=== PATIENT | female | born 1935 | race Caucasian/White ===

== ENCOUNTER 2018-06-21 10:28 | Observation (INO) ==
[2018-06-21] MEDS ORDERED: hydrALAZINE HCl Inj 20 MG/ML Vial IV.PUSH ONE ×2 (11:10→11:12)
--- NOTE | 2018-06-21 11:21 | ED ---
HPI General Chief Complaint: Anxiety Stated Complaint: b/p complaint Time Seen by Provider: 06/21/18 11:00 History of Present Illness HPI narrative: Patient is 82 years old female with history of high blood pressure, presented today with elevated blood pressure, systolic blood pressures up to 230. As per patient she measured her blood pressure yesterday in the evening and it was 130 systolic, she just decided not to take any blood pressure medications. Today in the morning when she woke up she measured her blood pressure is at 140 systolic and she again did not take her blood pressure medications. In the emergency room patient has high blood pressure and chest discomfort. Never had any cardiac issues in the past. Aspirin and nitroglycerin given. Patient look looks anxious in the emergency room. Related Data Home Medications Medication Instructions Recorded Confirmed hydrochlorothiazide 25 mg PO QAM 06/21/18 06/21/18 lisinopril 20 mg PO DAILY 06/21/18 06/21/18 lovastatin 20 mg PO QPM 06/21/18 06/21/18 verapamil 06/21/18 06/21/18 Allergies Allergy/AdvReac Type Severity Reaction Status Date / Time No Known Allergies Allergy Unknown Abdominal Uncoded 06/21/18 10:36 Pain Review of Systems ROS: all other systems reviewed are negative Cardiovascular Reports chest pain PMFSH Medical History Medical History HTN (hypertension) (Acute) Hyperlipemia (Acute) Social History Social History Substance History: No History of Abuse Second Hand Smoke Exposure: No Smoking Status: Never smoker Tobacco Type: Cigarettes How Often Do You Have a Drink Containing Alcohol: Never Recent Travel in [facility] within the Last 8 Weeks: No Recent Out of Country Travel within the Last 8 Weeks: No Immunization History Tetanus Immunization: Unsure Hx Influenza Vaccine This Season: No Exam Narrative Exam Narrative: GENERAL: [52-year-old female in no apparent distress-] SKIN: Focused skin assessment warm/dry. HEAD: Atraumatic. Normocephalic. EYES: Pupils equal and round. No scleral icterus. No injection or drainage. ENT: No nasal bleeding or discharge. Mucous membranes pink and moist. NECK: Trachea midline. No JVD. CARDIOVASCULAR: Regular rate and rhythm. No murmur appreciated. RESPIRATORY: No accessory muscle use. Clear to auscultation. Breath sounds equal bilaterally. GASTROINTESTINAL: Abdomen soft, non-tender, nondistended. Hepatic and splenic margins not palpable. MUSCULOSKELETAL: No obvious deformities. No clubbing. No cyanosis. No edema. NEUROLOGICAL: Awake and alert. No obvious cranial nerve deficits. Motor grossly within normal limits. Normal speech. PSYCHIATRIC: Appropriate mood and affect; insight and judgment normal. Course Initial Documented Vital Signs Temperature 98.0 F 06/21/18 10:36 Pulse Rate 60 06/21/18 10:36 Respiratory Rate 16 06/21/18 10:36 Blood Pressure 231/100 H 06/21/18 10:36 Pulse Oximetry 97 06/21/18 10:36 Last Documented Vital Signs Temperature 98.8 F 06/21/18 10:42 Pulse Rate 75 06/21/18 11:36 Respiratory Rate 16 06/21/18 11:36 Blood Pressure 177/84 H 06/21/18 11:36 Pulse Oximetry 97 06/21/18 11:36 Medical Decision Making MDM Narrative Medical decision making narrative: Labs ordered Blood pressure management Chest pain evaluation Reevaluation Admission to observation Labs noted, first set of troponin is negative, no chest pain Patient has mild UTI treated with Cipro. Hospitalist called for admission. Medical Screen Exam Complete: Yes Emergency Medical Condition: Yes Differential Diagnosis Differential Diagnosis: Hypertension Rule out hypertension emergency Chest pain rule out ACS Renal insufficiency Lab Data Result diagrams: 06/21/18 11:24 06/21/18 11:24 Lab Results 06/21/18 06/21/18 06/21/18 Range/Units 11:24 11:24 11:24 WBC 9.3 (4.0-11.0) th/mm3 RBC 4.62 (4.00-5.30) mil/mm3 Hgb 13.6 (11.6-15.3) gm/dL Hct 41.7 (35.0-46.0) % MCV 90.4 (80.0-100.0) fL MCH 29.5 (27.0-34.0) pg MCHC 32.7 (32.0-36.0) % RDW 13.7 (11.6-17.2) % Plt Count 252 (150-450) th/mm3 MPV 8.1 (7.0-11.0) fL Neut % (Auto) 78.3 H (16.0-70.0) % Lymph % (Auto) 13.3 (9.0-44.0) % [place] % (Auto) 6.9 (0.0-8.0) % Eos % (Auto) 0.8 (0.0-4.0) % Baso % (Auto) 0.7 (0.0-2.0) % Neut # (Auto) 7.2 (1.8-7.7) th/mm3 Lymph # (Auto) 1.2 (1.0-4.8) th/mm3 [place] # (Auto) 0.6 (0.0-0.9) th/mm3 Eos # (Auto) 0.1 (0.0-0.4) th/mm3 Baso # (Auto) 0.1 (0.0-0.2) th/mm3 WBC Differential . Differential Comment Auto diff final Sodium 142 (136-145) meq/L Potassium 3.9 (3.5-5.1) meq/L Chloride 107 (98-107) meq/L Carbon Dioxide 23.9 (21.0-32.0) meq/L Anion Gap 11 (5-15) meq/L BUN 15 (7-18) mg/dL Creatinine 0.79 (0.50-1.00) mg/dL Estimated GFR 70 L (>89) mL/min Random Glucose 121 H (74-106) mg/dL Calcium 8.8 (8.5-10.1) mg/dL Total Bilirubin 0.5 (0.2-1.0) mg/dL AST 46 H (15-37) U/L ALT 40 (10-53) U/L Alkaline Phosphatase 66 (45-117) U/L Troponin I Less than 0.02 L (0.02-0.05) ng/mL B-Natriuretic Peptide 70 (0-100) pg/mL Total Protein 7.4 (6.4-8.2) g/dL Albumin 3.3 L (3.4-5.0) g/dL Lipase 81 (73-393) U/L Urine Color (Yellw/Straw) Urine Clarity (Clear) Urine pH (5.0-8.5) Ur Specific Severance (1.002-1.035) Urine Protein (Neg-Trace) mg/dL Urine Glucose (UA) (Negative) mg/dL Urine Ketones (Negative) mg/dL Urine Occult Blood (Negative) Urine Nitrate (Negative) Urine Bilirubin (Negative) Urine Urobilinogen (Less than 2) mg/dL Ur Leukocyte Esterase (Negative) Urine RBC (0-3) /hpf Urine WBC (0-5) /hpf Ur Squamous Epith Cells (0-5) /hpf Urine Bacteria (None) /hpf Urine Mucus (Occasional) /lpf Ur Microscopic Review 06/21/18 Range/Units 15:45 WBC (4.0-11.0) th/mm3 RBC (4.00-5.30) mil/mm3 Hgb (11.6-15.3) gm/dL Hct (35.0-46.0) % MCV (80.0-100.0) fL MCH (27.0-34.0) pg MCHC (32.0-36.0) % RDW (11.6-17.2) % Plt Count (150-450) th/mm3 MPV (7.0-11.0) fL Neut % (Auto) (16.0-70.0) % Lymph % (Auto) (9.0-44.0) % [place] % (Auto) (0.0-8.0) % Eos % (Auto) (0.0-4.0) % Baso % (Auto) (0.0-2.0) % Neut # (Auto) (1.8-7.7) th/mm3 Lymph # (Auto) (1.0-4.8) th/mm3 [place] # (Auto) (0.0-0.9) th/mm3 Eos # (Auto) (0.0-0.4) th/mm3 Baso # (Auto) (0.0-0.2) th/mm3 WBC Differential Differential Comment Sodium (136-145) meq/L Potassium (3.5-5.1) meq/L Chloride (98-107) meq/L Carbon Dioxide (21.0-32.0) meq/L Anion Gap (5-15) meq/L BUN (7-18) mg/dL Creatinine (0.50-1.00) mg/dL Estimated GFR (>89) mL/min Random Glucose (74-106) mg/dL Calcium (8.5-10.1) mg/dL Total Bilirubin (0.2-1.0) mg/dL AST (15-37) U/L ALT (10-53) U/L Alkaline Phosphatase (45-117) U/L Troponin I (0.02-0.05) ng/mL B-Natriuretic Peptide (0-100) pg/mL Total Protein (6.4-8.2) g/dL Albumin (3.4-5.0) g/dL Lipase (73-393) U/L Urine Color Yellow (Yellw/Straw) Urine Clarity Cloudy H (Clear) Urine pH 7.0 (5.0-8.5) Ur Specific Severance 1.015 (1.002-1.035) Urine Protein Negative (Neg-Trace) mg/dL Urine Glucose (UA) Negative (Negative) mg/dL Urine Ketones Negative (Negative) mg/dL Urine Occult Blood Negative (Negative) Urine Nitrate Negative (Negative) Urine Bilirubin Negative (Negative) Urine Urobilinogen Less than 2 (Less than 2) mg/dL Ur Leukocyte Esterase Small H (Negative) Urine RBC 1 (0-3) /hpf Urine WBC 25 H (0-5) /hpf Ur Squamous Epith Cells <1 (0-5) /hpf Urine Bacteria Occasional H (None) /hpf Urine Mucus Few H (Occasional) /lpf Ur Microscopic Review Not Reportable Imaging Data Radiologist's impression: Chest X-Ray 06/21/18 11:08 CONCLUSION: Elevation right hemidiaphragm with minimal parenchymal changes right base that could be an inflammatory process. Discharge Plan Discharge Disposition Patient Disposition: 30 Still Patient Discharge Condition Condition: Fair Discharge Details Discharge Comment: Patient had chest pain, resolved in the emergency room. She will be placed on [facility] under Dr. Davis service Diagnosis: Chest pain of unknown etiology, Acute anxiety, Hypertension, Acute UTI Physicians Team ED Provider: Kostas Reeder Primary Care Provider: Nuvia Ricketts Rxs /Orders / Referrals /Forms Prescriptions: No Action verapamil 200 mg Capsule, [address] RF: 0 lisinopril 20 mg Tablet 20 mg PO DAILY RF: 0 hydrochlorothiazide 25 mg Tablet 25 mg PO QAM RF: 0 lovastatin 20 mg Tablet 20 mg PO QPM RF: 0 Discharge Interventions Interventions: Vital Signs Last Done: 06/21/18 10:42 Status ED Status: With Doctor
--- NOTE | 2018-06-21 11:37 | XR ---
EXAM DATE: 06/21/2018 11:31 AM EDT AGE/SEX: 82 years / Female INDICATIONS: Chest pain. CLINICAL DATA: This is the patient's initial encounter. Patient reports that signs and symptoms have been present for 1 day and indicates a pain score of 0/10. MEDICAL/SURGICAL HISTORY: None. None. COMPARISON: [facility], CHEST PA & LAT, 12/31/2014. . FINDINGS: Heart is minimally enlarged. There is no dilation of the right hemidiaphragm with minimal peribronchi al thickening and parenchymal changes right base. Left lung is reasonably clear. There is no pneumothorax The portion of the bony skeleton visualized is unremarkable. CONCLUSION: Elevation right hemidiaphragm with minimal parenchymal changes right base that could be an inflammato ry process. Electronically signed by: Elton Acosta MD 06/21/2018 11:35 AM EDT
[2018-06-21 11:49] LABS: Baso # (Auto) 0.1 th/mm3 (0.0-0.2); Baso % (Auto) 0.7 % (0.0-2.0); Eos # (Auto) 0.1 th/mm3 (0.0-0.4); Eos % (Auto) 0.8 % (0.0-4.0); Hematocrit 41.7 % (35.0-46.0); Hemoglobin 13.6 gm/dL (11.6-15.3); Lymph # (Auto) 1.2 th/mm3 (1.0-4.8); Lymph % (Auto) 13.3 % (9.0-44.0); Mean Corpuscular HGB Conc 32.7 % (32.0-36.0); Mean Corpuscular Hemoglobin 29.5 pg (27.0-34.0); Mean Corpuscular Volume 90.4 fL (80.0-100.0); Mean Platelet Volume 8.1 fL (7.0-11.0); Mono # (Auto) 0.6 th/mm3 (0.0-0.9); Mono % (Auto) 6.9 % (0.0-8.0); Neut # (Auto) 7.2 th/mm3 (1.8-7.7); Neut % (Auto) 78.3 % (16.0-70.0); Platelet Count 252 th/mm3 (150-450); Red Blood Count 4.62 mil/mm3 (4.00-5.30); Red Cell Distribution Width 13.7 % (11.6-17.2); White Blood Count 9.3 th/mm3 (4.0-11.0)
[2018-06-21 12:07] LABS: Alanine Aminotransferase 40 U/L (10-53); Albumin 3.3 g/dL (3.4-5.0); Anion Gap 11 meq/L (5-15); Aspartate Aminotransferase 46 U/L (15-37); Blood Urea Nitrogen 15 mg/dL (7-18); Calcium 8.8 mg/dL (8.5-10.1); Carbon Dioxide 23.9 meq/L (21.0-32.0); Chloride 107 meq/L (98-107); Glomerular Filtration Rate 70 mL/min (>89); Glucose,Random 121 mg/dL (74-106); Lipase 81 U/L (73-393); Potassium 3.9 meq/L (3.5-5.1); Sodium 142 meq/L (136-145)
[2018-06-21 12:11] LABS: Alkaline Phosphatase 66 U/L (45-117); Total Protein 7.4 g/dL (6.4-8.2)
[2018-06-21 16:17] LABS: Bacteria,Urine Occasional /hpf; Bilirubin,Urine Negative (Negative); Clarity,Urine Cloudy (Clear); Color,Urine Yellow (Yellw/Straw); Glucose,Urine (UA) Negative (Negative); Leukocyte Esterase,Urine Small (Negative); Mucus,Urine Few /lpf (Occasional); Nitrite,Urine Negative (Negative); Specific Gravity,Urine 1.015 (1.002-1.035); Squamous Epithelial Cell,Urine <1 /hpf (0-5)
[2018-06-21 17:29] LABS: Creatine Kinase 65 U/L (26-192)
[2018-06-21] MEDS ORDERED: Acetaminophen 500 MG Tablet PO PRN (18:14)
[2018-06-21] MEDS ORDERED: ALPRAZolam 0.25 MG Tablet PO PRN (18:16)
--- NOTE | 2018-06-21 19:05 | P.HPCA ---
History of Present Illness Primary Care Physician: Nuvia Ricketts Chief Complaint: dizziness, elevated blood pressure History of Present Illness: 82-year-old female with history of hypertension and hyperlipidemia presents emergency room for further evaluation of dizziness, elevated blood pressure, and chest pressure. Onset this morning. [place] dizzy, diaphoretic, with intermittent substernal chest pressure. No radiation. No other associated symptoms. Took blood pressure noted blood pressure to be 230/100. Called daughter to bring her to the emergency room. Total duration approximately 45 minutes. No recent change in blood pressure medication. Notes that she has fluctuations in her blood pressure and her primary care provider told her if her blood pressure is less than 140 she can hold her a.m. BP medication dose. In regards to her chest pressure endorses chest pressure occurring at least one month. Always occurring in morning hours. Substernal. Characterizes pressure. Duration generally last until mid afternoon. No associated symptoms. Endorses current situational stress and questions if discomfort may be related to this. No known coronary artery disease or diabetes. Lifelong non -smoker. No recent illness, fever, chills, or injury. States she was told by ER she has a kidney infection. The last few weeks experiencing urinary leakage, requiring use of poise pads for protection. Past cardiac testing Remote exercise testing. Never required cardiac catheterization. Social history Known hypertension and hyperlipidemia. No known coronary artery disease or diabetes. Lives alone. x5 years. Venessa is a fairly sedentary lifestyle. Lifelong non-smoker. Denies any alcohol or recreational drug use. - Diagnosis (1) Hypertension (2) Atypical chest pain (3) History of hyperlipidemia Review of Systems All other systems reviewed negative except as stated in HPI PMFSH - History History Provided By: Patient - Medical History Medical History: Medical History (Last Updated 06/21/18 @ 10:40 by Korutney Loco) HTN (hypertension) Hyperlipemia - Surgical History Surgical History: Surgical History (Last Updated 06/21/18 @ 19:00 by ILDEFONSO Liu) History of right hip replacement Status post bilateral knee replacements - Social History I have reviewed the patient's Social History: Yes - Tobacco History Second Hand Smoke Exposure: No Tobacco Use In Past 30 Days: No Smoking Status: Never smoker - Alcohol History How Often Do You Have a Drink Containing Alcohol: Never - Substance Use History Substance History: No History of Abuse - Travel History Recent Travel in the [place] Within the Last 8 Weeks: No Recent Travel Out of the Country Within the Last 8 Weeks: No - Immunization History Tetanus Immunization: Unsure Hx Influenza Vaccine This Season: No Medications and Allergies Active Medications: Active Medications Acetaminophen (Tylenol) 500 mg PO Q4H PRN PRN Reason: HEADACHE Alprazolam (Xanax) 0.125 mg PO Q6H PRN PRN Reason: ANXIETY Aspirin (Aspirin) 325 mg PO DAILY MICHAEL Clonidine HCl (Catapres) 0.1 mg PO Q6H PRN PRN Reason: SYS BP GREATER THAN 180 MMHG Nitroglycerin (Nitrostat Sl) 0.4 mg SL Q5M PRN PRN Reason: CHEST PAIN Ondansetron HCl (Zofran Inj) 4 mg IV.PUSH Q6H PRN PRN Reason: NAUSEA Sodium Chloride (Ns Flush) 2 ml IV.FLUSH UNSCH PRN PRN Reason: FLUSH AFTER USING IV ACCESS Sodium Chloride (Ns Flush) 2 ml IV.FLUSH BID MICHAEL Allergies Allergy/AdvReac Type Severity Reaction Status Date / Time No Known Allergies Allergy Unknown Abdominal Uncoded 06/21/18 10:36 Pain Home Medications Medication Instructions Recorded Confirmed Type hydrochlorothiazide 25 mg PO QAM 06/21/18 06/21/18 History lisinopril 20 mg PO DAILY 06/21/18 06/21/18 History lovastatin 20 mg PO QPM 06/21/18 06/21/18 History verapamil 06/21/18 06/21/18 History Exam Vital signs: Vital Signs 06/21/18 10:36 06/21/18 10:42 06/21/18 11:08 Temperature 98.0 F 98.8 F Pulse Rate 60 60 Respiratory Rate 16 18 Blood Pressure 231/100 H Pulse Oximetry 97 98 95 06/21/18 11:36 06/21/18 14:30 06/21/18 17:00 Temperature Pulse Rate 75 58 L 54 L Respiratory Rate 16 18 20 Blood Pressure 177/84 H 154/72 H 168/74 H Pulse Oximetry 97 06/21/18 18:00 Temperature Pulse Rate 56 L Respiratory Rate 18 Blood Pressure 170/71 H Pulse Oximetry Intake & Output 06/20/18 06/21/18 06/21/18 18:59 06:59 18:59 Weight 87.09 kg Narrative: GENERAL: Alert WN, WD, NAD, pleasant, obese elderly female HEAD: NC, AT EYES: Sclera clear, conjunctiva without injection, pupils equal and round ENT: Mucous membranes pink and moist NECK: Supple, no masses, trachea midline CV: RRR, without murmur, rub, gallop, no JVD, S1-S2. No carotid bruits. Chest wall nontender to palpation RESP: Clear lungs throughout bilateral, no crackles, wheeze, rhonchi, symmetrical chest rise, nonlabored, able to speak in full sentences ABD: Soft, NT, ND, no masses, positive bowel tones EXT: Pulses +2x4, no dependent edema MS: Normal tone x4 extremities, nontender, no obvious deformities, full range of motion NEURO: CN II through CN XII grossly intact, motor strength 5/5 PSYCH: A+O x3, pleasant affect, appropriate speech, slightly anxious mood, appropriate insight and judgment SKIN: Normal turgor, normal texture, no lesions, no rashes, brisk cap refill, even hair distribution, bilateral knee surgical scars Results 06/21/18 11:24 06/21/18 11:24 Cardiac Enzymes 06/21/18 06/21/18 06/21/18 Range/Units 11:24 11:24 15:45 AST 46 H (15-37) U/L Troponin I Less than 0.02 L Less than 0.02 L (0.02-0.05) ng/mL B-Natriuretic Peptide 70 (0-100) pg/mL Coagulation 06/21/18 Range/Units 11:24 B-Natriuretic Peptide 70 (0-100) pg/mL CBC 06/21/18 Range/Units 11:24 WBC 9.3 (4.0-11.0) th/mm3 RBC 4.62 (4.00-5.30) mil/mm3 Hgb 13.6 (11.6-15.3) gm/dL Hct 41.7 (35.0-46.0) % Plt Count 252 (150-450) th/mm3 Neut # (Auto) 7.2 (1.8-7.7) th/mm3 Lymph # (Auto) 1.2 (1.0-4.8) th/mm3 [place] # (Auto) 0.6 (0.0-0.9) th/mm3 Eos # (Auto) 0.1 (0.0-0.4) th/mm3 Baso # (Auto) 0.1 (0.0-0.2) th/mm3 Comprehensive Metabolic Panel 06/21/18 Range/Units 11:24 Sodium 142 (136-145) meq/L Potassium 3.9 (3.5-5.1) meq/L Chloride 107 (98-107) meq/L Carbon Dioxide 23.9 (21.0-32.0) meq/L BUN 15 (7-18) mg/dL Creatinine 0.79 (0.50-1.00) mg/dL Calcium 8.8 (8.5-10.1) mg/dL AST 46 H (15-37) U/L ALT 40 (10-53) U/L Alkaline Phosphatase 66 (45-117) U/L Total Protein 7.4 (6.4-8.2) g/dL Albumin 3.3 L (3.4-5.0) g/dL Intake and Output 06/21/18 06/21/18 06/21/18 06:59 14:59 22:59 Other: Weight 87.09 kg Patient Weight 06/22/18 06:59 Weight 87.09 kg - Imaging and Cardiology Imaging: Impressions Chest X-Ray 06/21/18 11:08 CONCLUSION: Elevation right hemidiaphragm with minimal parenchymal changes right base that could be an inflammatory process. EKG interpretations - EKG EKG results cardiology: sinus rhythm, normal ST/T Caprini VTE Risk Assessment Caprini VTE Risk Assessment: Moderate/High Risk (score >= 2) Caprini Risk Assessment Model: Point Value = 1 Point Value = 2 Point Value = 3 Point Value = 5 Age 41-60 Minor surgery BMI > 25 kg/m2 Swollen legs Varicose veins or History of unexplained or recurrent spontaneous Oral contraceptives or hormone replacement Sepsis (< 1 month) Serious lung disease, including pneumonia (< 1 month) Abnormal pulmonary function Acute myocardial infarction Congestive heart failure (< 1 month) History of inflammatory bowel disease Medical patient at bed rest Age 61-74 Arthroscopic surgery Major open surgery (> 45 min) Laparoscopic surgery (> 45 min) Malignancy Confined to bed (> 72 hours) Immobilizing plaster cast Central venous access Age >= 75 History of VTE Family history of VTE Factor V Leiden Prothrombin [id number] Lupus anticoagulant Anticardiolipin antibodies Elevated serum homocysteine Heparin-induced thrombocytopenia Other congenital or acquired thrombophilia Stroke (< 1 month) Elective arthroplasty Hip, pelvis, or leg fracture Acute spinal cord injury (< 1 month) Prophylaxis Regimen: Total Risk Factor Score Risk Level Prophylaxis Regimen 0-1 Low Early ambulation 2 Moderate Order ONE of the following: *Sequential Compression Device (SCD) *Heparin 5000 units SQ BID 3-4 Higher Order ONE of the following medications: *Heparin 5000 units SQ TID *Enoxaparin/Lovenox 40 mg SQ daily (WT < 150 kg, CrCl > 30 mL/min) *Enoxaparin/Lovenox 30 mg SQ daily (WT < 150 kg, CrCl > 10-29 mL/min) *Enoxaparin/Lovenox 30 mg SQ BID (WT < 150 kg, CrCl > 30 mL/min) AND/OR *Sequential Compression Device (SCD) 5 or more Highest Order ONE of the following medications: *Heparin 5000 units SQ TID (Preferred with Epidurals) *Enoxaparin/Lovenox 40 mg SQ daily (WT < 150 kg, CrCl > 30 mL/min) *Enoxaparin/Lovenox 30 mg SQ daily (WT < 150 kg, CrCl > 10-29 mL/min) *Enoxaparin/Lovenox 30 mg SQ BID (WT < 150 kg, CrCl > 30 mL/min) AND *Sequential Compression Device (SCD) Assessment and Plan - Assessment (1) Hypertension Code(s): I10 - Essential (primary) hypertension Status: Acute Plan: Continue to monitor. Continue lisinopril and hydrochlorothiazide. Verapamil listed on patient's home medication list not accurate, quitting taking mediation nearly 2 months ago. amlodipine 5 mg 1 dose now. Clonidine 0.1 mg every 6 hours as needed as needed for systolic blood pressure greater than 180. Discussed anxiety may be a contributing factor to elevated blood pressure. Xanax 0.25 mg as needed every 6 hours as needed for anxiety. Encouraged her to consider use of Xanax if needed. (2) Atypical chest pain Code(s): R07.89 - Other chest pain Status: Acute Plan: Admitted chest pain center. Rule out ACS with 3 sets of EKGs and cardiac enzymes. Will be seen evaluated by Dr. Leodan Loja in a.m. Discussed likely will proceed with Christina in a.m., this will be determined after evaluation by clinical geneticist. Patient agreeable to plan of care. (3) History of hyperlipidemia Code(s): Z86.39 - Personal history of other endocrine, nutritional and metabolic disease Status: Chronic Plan: Continue lovastatin. (1) Hypertension Qualifiers: Hypertension type: unspecified Qualified Code(s): I10 - Essential (primary) hypertension
[2018-06-21] MEDS ORDERED: amLODIPine 5 MG Tablet PO ONE (19:06)
[2018-06-21] MEDS: hydroCHLOROthiazide 25 MG Tablet PO SCH (20:24)
[2018-06-21 20:48] LABS: Creatine Kinase 75 U/L (26-192)
[2018-06-22 05:01] VITALS: O2SAT 96
[2018-06-22 08:15] VITALS: TEMP 97.6
[2018-06-22] MEDS ORDERED: Aspirin 325 MG Tablet PO SCH (09:00)
[2018-06-22] MEDS ORDERED: Lisinopril 20 MG Tablet PO SCH (09:00)
[2018-06-22] MEDS ORDERED: Regadenoson Inj 0.4 MG/5 ML Syringe IV.PUSH ONE (09:52)
--- NOTE | 2018-06-22 10:28 | ECG ---
Date Performed: 06/21/2018 Time Performed: 20:07:30 PTAGE: 82 years EKG: Sinus rhythm POSSIBLE LEFT ATRIAL ENLARGEMENT LOW QRS VOLTAGE IN PRECORDIAL LEADS NONSPECIFIC T-WAVE ABNORMALITY BORDERLINE ECG INTERPRETATION BASED ON A DEFAULT AGE OF 40 YEARS NO PREVIOUS TRACING DOCTOR: Leodan Loja Interpretating Date/Time 06/22/2018 10:28:03
--- NOTE | 2018-06-22 10:30 | ECG ---
Date Performed: 06/21/2018 Time Performed: 16:53:53 PTAGE: 82 years EKG: SINUS BRADYCARDIA LOW QRS VOLTAGE IN PRECORDIAL LEADS BORDERLINE ECG PREVIOUS TRACING : 06/21/2018 10.37 Since previous tracing, no significant change noted DOCTOR: Leodan Loja Interpretating Date/Time 06/22/2018 10:29:09
--- NOTE | 2018-06-22 10:32 | ECG ---
Date Performed: 06/21/2018 Time Performed: 10:37:39 PTAGE: 82 years EKG: Sinus rhythm NORMAL ECG PREVIOUS TRACING : 12/19/2014 08.59 Since previous tracing, no significant change noted DOCTOR: Leodan Loja Interpretating Date/Time 06/22/2018 10:30:32
--- NOTE | 2018-06-22 11:02 | NM ---
EXAM DATE: 06/22/2018 10:55 AM EDT AGE/SEX: 82 years / Female INDICATIONS:Angina. . Mid chest pain for two days. CLINICAL DATA: This is the patient's initial encounter. Patient reports that signs and symptoms have been present for 2 days and indicates a pain score of 3/10. MEDICAL/SURGICAL HISTORY: Hypertension. Total knee replacement, left. Total knee replacement, right. COMPARISON: No prior exams available for comparison. No external comparison. DOSE: 8.7 mCi Tc 99m Myoview at rest 27.3 mCi [id number] at stress 0.4 mg Lexiscan STRESS SYMPTOMS: Weird feeling. EJECTION FRACTION: 69 % TECHNIQUE: The patient underwent pharmacologic stress with infusion of prescribed dose. Continuous ECG tracing was monitored during stress. Gated SPECT imaging was performed after stress and conventi onal SPECT imaging was performed at rest. The examination was performed on a SPECT/CT scanner, both attenuation and non-corrected datasets were reviewed. FINDINGS: Distribution: The maximum perfused segment at stress is in the anterolateral wall. Perfusion Study: Focal decreased perfusion during stress in the mid anteroseptal and inferoseptal w alls. Gated Study: There are intact wall motion and wall thickening without hypokinetic or dyskinetic segm ents. The ejection fraction is calculated at 69%. RISK CATEGORY: Low (<1% Annual Motality Rate) CONCLUSION: 1. Focal ischemia in the mid anteroseptal and inferoseptal brito. 2. Intact wall motion with EF of 69%. Electronically signed by: Bimal Flaherty MD 06/22/2018 11:01 AM EDT
[2018-06-22 11:07] VITALS: BP 142/65; PULSE 73; RESP 18
[2018-06-22] MEDS: hydroCHLOROthiazide 25 MG Tablet PO SCH (11:10)
--- NOTE | 2018-06-22 11:40 | P.PNCA ---
Subjective Interval history: Denies chest pain overnight. Medications and Allergies Active Medications: Active Medications Acetaminophen (Tylenol) 500 mg PO Q4H PRN PRN Reason: HEADACHE Alprazolam (Xanax) 0.125 mg PO Q6H PRN PRN Reason: ANXIETY Aspirin (Aspirin) 325 mg PO DAILY [facility] Last Admin: 06/22/18 11:10 Dose: 325 mg Clonidine HCl (Catapres) 0.1 mg PO Q6H PRN PRN Reason: SYS BP GREATER THAN 180 MMHG Hydrochlorothiazide (Hydrodiuril) 25 mg PO DAILY [facility] Last Admin: 06/22/18 11:10 Dose: 25 mg Lisinopril (Prinivil) 20 mg PO DAILY [facility] Last Admin: 06/22/18 11:10 Dose: 20 mg Nitroglycerin (Nitrostat Sl) 0.4 mg SL Q5M PRN PRN Reason: CHEST PAIN Ondansetron HCl (Zofran Inj) 4 mg IV.PUSH Q6H PRN PRN Reason: NAUSEA Pravastatin Sodium (Pravachol) 20 mg PO HS [facility] Last Admin: 06/21/18 20:24 Dose: 20 mg Sodium Chloride (Ns Flush) 2 ml IV.FLUSH UNSCH PRN PRN Reason: FLUSH AFTER USING IV ACCESS Sodium Chloride (Ns Flush) 2 ml IV.FLUSH BID [facility] Last Admin: 06/22/18 11:10 Dose: 2 ml Verapamil HCl (Isoptin Sr) 180 mg PO DAILY [facility] Last Admin: 06/22/18 11:36 Dose: 180 mg Allergies Allergy/AdvReac Type Severity Reaction Status Date / Time No Known Allergies Allergy Unknown Abdominal Uncoded 06/21/18 10:36 Pain Home Medications Medication Instructions Recorded Confirmed Type hydrochlorothiazide 25 mg PO QAM 06/21/18 06/21/18 History lisinopril 20 mg PO DAILY 06/21/18 06/21/18 History lovastatin 20 mg PO QPM 06/21/18 06/22/18 History verapamil 200 mg PO DAILY 06/21/18 06/22/18 History Physical Exam Vital signs: Vital Signs 06/21/18 14:30 06/21/18 17:00 06/21/18 18:00 Temperature Pulse Rate 58 L 54 L 56 L Respiratory Rate 18 20 18 Blood Pressure 154/72 H 168/74 H 170/71 H Pulse Oximetry 06/21/18 19:11 06/21/18 20:00 06/21/18 21:00 Temperature 98.4 F Pulse Rate 57 L 66 61 Respiratory Rate 16 18 Blood Pressure 153/70 H 149/70 H Pulse Oximetry 97 95 06/22/18 00:00 06/22/18 04:00 06/22/18 08:13 Temperature 97.8 F 98.2 F 97.6 F Pulse Rate 58 L 58 L 63 Respiratory Rate 19 19 20 Blood Pressure 170/79 H 145/70 H 180/74 H Pulse Oximetry 93 L 96 06/22/18 08:31 06/22/18 11:06 Temperature 97.6 F Pulse Rate 73 Respiratory Rate 18 Blood Pressure 142/65 H Pulse Oximetry 96 96 Intake & Output 06/21/18 06/22/18 06/22/18 18:59 06:59 18:59 Intake Total 720 / 720 Balance 720 / 720 Weight 87.09 kg 87.09 kg Intake: Oral 720 / 720 Other: # Voids 6 Date of Last Bowel Movement 06/20/18 Weight On Admission 87.09 kg Narrative: General: Patient in no apparent distress. Speaks in clear complete sentences. Cardiac: Regular rate and rhythm without murmur gallop or rub. Respiratory: Lungs clear to auscultate bilaterally. Results 06/21/18 11:24 06/21/18 11:24 Cardiac Enzymes 06/21/18 06/21/18 06/21/18 Range/Units 11:24 11:24 15:45 AST 46 H (15-37) U/L Troponin I Less than 0.02 L Less than 0.02 L (0.02-0.05) ng/mL B-Natriuretic Peptide 70 (0-100) pg/mL 06/21/18 Range/Units 20:00 AST (15-37) U/L Troponin I Less than 0.02 L (0.02-0.05) ng/mL B-Natriuretic Peptide (0-100) pg/mL Coagulation 06/21/18 Range/Units 11:24 B-Natriuretic Peptide 70 (0-100) pg/mL CBC 06/21/18 Range/Units 11:24 WBC 9.3 (4.0-11.0) th/mm3 RBC 4.62 (4.00-5.30) mil/mm3 Hgb 13.6 (11.6-15.3) gm/dL Hct 41.7 (35.0-46.0) % Plt Count 252 (150-450) th/mm3 Neut # (Auto) 7.2 (1.8-7.7) th/mm3 Lymph # (Auto) 1.2 (1.0-4.8) th/mm3 Lynn # (Auto) 0.6 (0.0-0.9) th/mm3 Eos # (Auto) 0.1 (0.0-0.4) th/mm3 Baso # (Auto) 0.1 (0.0-0.2) th/mm3 Comprehensive Metabolic Panel 06/21/18 Range/Units 11:24 Sodium 142 (136-145) meq/L Potassium 3.9 (3.5-5.1) meq/L Chloride 107 (98-107) meq/L Carbon Dioxide 23.9 (21.0-32.0) meq/L BUN 15 (7-18) mg/dL Creatinine 0.79 (0.50-1.00) mg/dL Calcium 8.8 (8.5-10.1) mg/dL AST 46 H (15-37) U/L ALT 40 (10-53) U/L Alkaline Phosphatase 66 (45-117) U/L Total Protein 7.4 (6.4-8.2) g/dL Albumin 3.3 L (3.4-5.0) g/dL Intake and Output 06/21/18 06/22/18 06/22/18 22:59 06:59 14:59 Intake Total 720 / 720 Balance 720 / 720 Intake: Oral 720 / 720 Other: # Voids 6 Date of Last Bowel Movement 06/20/18 Weight 87.09 kg Weight On Admission 87.09 kg - Imaging and Cardiology Imaging: Impressions Chest X-Ray 06/21/18 11:08 CONCLUSION: Elevation right hemidiaphragm with minimal parenchymal changes right base that could be an inflammatory process. Myocardial Perfusion Scan Nuc Med 06/22/18 07:39 CONCLUSION: 1. Focal ischemia in the mid anteroseptal and inferoseptal brito. 2. Intact wall motion with EF of 69%. Assessment and Plan - Plan * Chest pain: Patient had serial cardiac enzymes and EKGs for ruling out purposes. She was seen by Dr. Leodan Loja of cardiology in the chest pain center. Her Lexiscan focal ischemia in the mid anteroseptal and inferior septal brito. Intact wall motion with EF of 69%. This was discussed with Dr. Treadwell. He personally reviewed the nuclear images and believes it is a fixed defect. States he will follow her in his office. Patient will be discharged home at this time and will follow with Dr. Treadwell within a week. She is also should follow-up with her primary care physician. Return to ED for interval issues. * Hypertension: Her blood pressures have improved. Continue medications. * Hyperlipidemia: Continue medication. Patient is stable at this time. She is agreeable to this plan.
--- NOTE | 2018-06-22 14:50 | TR ---
Date Performed: 06/22/2018 Time Performed: 09:50:43 DOCTOR: Leodan Loja DRUG LIST: CLINICAL HISTORY: REASON FOR TEST: REASON FOR ENDING: OBSERVATION: CONCLUSION: COMMENTS: Lexiscan stress test was performed under standard four minute protocol. Radionuclide was injected one minute prior to ending the test. No electrocardiographic abormalities were present t o suggest ischemia. Nuclear imaging and interpretation are pending.
== END 2018-06-22 14:33 | disposition home or self-care (01) ==
LOC: NEPC 10:28 → NEDA 10:28 → NEPHCDU 19:20
PROVIDERS: ADMIT Internal Medicine Interventional Cardiology; ATTEND Internal Medicine Interventional Cardiology
DX: R94.31 Abnormal electrocardiogram [ECG] [EKG]; R07.89 Other chest pain; I10 Essential (primary) hypertension; Z86.39 Personal history of other endocrine, nutritional and metabolic disease; Z96.641 Presence of right artificial hip joint; N39.0 Urinary tract infection, site not specified; E78.5 Hyperlipidemia, unspecified; F17.210 Nicotine dependence, cigarettes, uncomplicated; F41.9 Anxiety disorder, unspecified; Z96.653 Presence of artificial knee joint, bilateral